=== PATIENT | male | born 1985 | race African-American/Black ===

== ENCOUNTER 2021-09-28 22:20 | Emergency (ER) | payer OTHER ==
[2021-09-29] MEDS ORDERED: Acetaminophen 500 MG Tab PO ONE (00:11)
== END 2021-09-29 03:15 | disposition home or self-care (01) ==
LOC: VM.ED 22:20
DX: M54.50 Low back pain, unspecified (principal); R51.9 Headache, unspecified
CPT/HCPCS: 70450; 71250; 72125; 74176; 99283; 99284; A9270